=== PATIENT | male | born 1990 | race African-American/Black ===

== ENCOUNTER 2020-07-02 20:51 | Emergency (ER) | payer BC, SELFPAY ==
--- NOTE | ~2020-07-02 | XR_ITS ---
EXAMINATION: XR chest 1V portable DATE: 07/02/2020 23:20 INDICATION: Shortness of breath. Asthma. TECHNIQUE: A single frontal view of the chest was obtained. COMPARISON: None. FINDINGS: The patient is rotated to his left. No pneumonia, pleural effusion, or pneumothorax. The he art size is normal. IMPRESSION: 1. No acute cardiopulmonary disease. Reviewed, dictated and finalized at location A.
[2020-07-02 21:15] VITALS: BP 163/118; PULSE 90; RESP 22; TEMP 36.2; O2SAT 100
[2020-07-02 22:06] VITALS: PULSE 80; RESP 18; O2SAT 97
[2020-07-02 22:40] VITALS: PULSE 78; RESP 12
[2020-07-02] MEDS: ALBUTEROL SULFATE NEB 2.5 MG/0.5 ML INH INHALATION (22:51)
[2020-07-02] MEDS: IPRATROPIUM BR 0.02% INH SOLN 0.5 MG/2.5 ML VIAL INHALATION (22:51)
[2020-07-02 22:58] VITALS: PULSE 84; RESP 14
--- NOTE | 2020-07-02 23:10 | PCRCNOTE ---
AT 22:50 EXPLAINED THE IMPORTANCE OF THE ABG TO PT HE REFUSED AT THIS TIME MD IS AWARE.
--- NOTE | 2020-07-02 23:11 | PC.NURSE ---
pt refused blood draw
--- NOTE | 2020-07-02 23:34 | ED.ASTHMA ---
HPI - Asthma General Chief Complaint: Asthma Stated Complaint: asthma Time Seen by Provider: 07/02/20 23:00 Source: patient and RN notes reviewed Mode of arrival: ambulatory Limitations: no limitations History of Present Illness HPI Narrative: Patient is 29 years old -[place] male presents with wheezing and trouble breathing on exertion. Started in the last few days. History of asthma with the need of inhaler only every year in the spring and falls. Patient does not have inhaler at home at this time. Patient denies any fever, chills, nausea, vomiting, chest pain or back pain. Patient drove himself to the emergency room. Review of Systems Review of Systems: Narrative: CONSTITUTIONAL: Denies fever, chills, or sweats. EYES: Denies visual changes, redness, or discharge. ENT: Denies rhinorrhea, congestion, sore throat, or otalgia. CARDIOVASCULAR: Denies chest pain, palpitations, or edema. RESPIRATORY: Denies cough or dyspnea. GASTROINTESTINAL: Denies abdominal pain, nausea, vomiting, or diarrhea. GENITOURINARY: Denies dysuria or hematuria. SKIN: Denies rash or itching. MUSCULOSKELETAL: Denies back pain, joint pain, or myalgia. NEUROLOGIC: Denies headache, numbness, or weakness. PSYCHIATRIC: Denies anxiety or depression. PMFSH Social History Social History Gender identity (if verbalized by the patient): Male Exam Narrative: Exam Narrative: General appearance: Well-developed, well-nourished Skin: Normal color Head: Normocephalic, nontraumatic Eyes: Clear conjunctiva ENT: Oropharynx normal, ears normal, nose normal Neck: Supple, nontender Chest and respiratory: Airway patent, no respiratory distress, no accessory muscle use, few scattered wheezing Heart: Regular rate/rhythm Vascular: Normal peripheral pulses, normal capillary refill. 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 Differential Diagnosis Differential diagnosis: Likely Acute exacerbation and Acute asthmatic bronchitis Imaging Data Radiologist's impression: Impressions Chest X-Ray 07/02/20 23:20 IMPRESSION: 1. No acute cardiopulmonary disease. Critical Care Time Critical Care Time Critical Care Time: No Discharge Plan Discharge Clinical Impression: Asthma with acute exacerbation Qualifiers: Asthma severity: mild Asthma persistence: unspecified Qualified Code(s): J45.901 - Unspecified asthma with (acute) exacerbation Patient Disposition: Home, Self-Care Condition: Improved Instructions: Asthma (ED) Additional Instructions: Return if symptoms are worsening , call your family physician for appointment, take Tylenol as as needed for aches and pain, continue home medications. Prescriptions: New albuterol sulfate 90 mcg/actuation HFA aerosol inhaler 2 puff inhalation QID PRN (Reason: shortness of breath or wheezing) Qty: 8.5 RF: 0 fluticasone propionate [Flonase Allergy Relief] 50 mcg/actuation spray,suspension 2 spr
[2020-07-02 23:41] VITALS: BP 159/103; PULSE 67; RESP 16; O2SAT 97
== END 2020-07-02 23:49 | disposition home or self-care (01) ==
PROVIDERS: Emergency Provider Emergency Medicine
DX: J45.901 Unspecified asthma with (acute) exacerbation (principal)
CPT/HCPCS: 71045; 94640; 99283

== ENCOUNTER 2021-07-18 07:00 | Emergency (ER) | payer BC, SELFPAY ==
--- NOTE | ~2021-07-18 | XR_ITS ---
EXAMINATION: XR chest 1V portable DATE: 07/18/2021 07:41 INDICATION: Asthma exacerbation TECHNIQUE: frontal view of the chest was obtained. COMPARISON: Chest radiograph dated 07/29/2020 FINDINGS: The lungs are clear with no focal airspace opacities, pulmonary edema, pleural effusion or pneumothor ax. The cardiomediastinal silhouette is normal. Visualized bones and soft tissues are unremarkable. IMPRESSION: 1. No evident acute cardiopulmonary disease. Reviewed, dictated and finalized at location A.
[2021-07-18 07:07] VITALS: BP 160/120; PULSE 102; RESP 26; TEMP 36.5; O2SAT 98
[2021-07-18 07:15] VITALS: O2SAT 94
--- NOTE | 2021-07-18 07:16 | ED.ASTHMA ---
HPI - Asthma General Chief Complaint: Asthma Stated Complaint: asthma Time Seen by Provider: 07/18/21 07:15 Source: patient Mode of arrival: ambulatory Limitations: no limitations History of Present Illness HPI Narrative: Patient is 30 years old -[place] male presents with trouble breathing prior to arrival to the emergency room, patient is running out of his albuterol inhaler. He denies any fever, chills, nausea, vomiting. History of asthma flare every year at this time of the year Related Data Allergies Allergy/AdvReac Type Severity Reaction Status Date / Time Unable to Assess Allergy Verified 07/18/21 07:29 Review of Systems Review of Systems: All systems reviewed & are unremarkable except as noted in HPI and below PMFSH Social History Social History Gender identity (if verbalized by the patient): Male Exam Narrative: General appearance: Well-developed, well-nourished Skin: Normal color Head: Normocephalic, nontraumatic Eyes: Clear conjunctiva ENT: Oropharynx normal, ears normal, nose normal Neck: Supple, nontender Chest and respiratory: Airway patent, no respiratory distress, accessory muscle use Heart: Tachycardia Abdomen: Soft, nontender, no organomegaly, quiet bowel sounds Vascular: Normal peripheral pulses, normal capillary refill. 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 Patient is able to talk without interruption, walk in the emergency room without any restriction. Vital Signs Vital signs: Vital Signs Temperature 36.5 C 07/18/21 07:07 Pulse Rate 102 H 07/18/21 07:07 Respiratory Rate 26 H 07/18/21 07:07 Blood Pressure 160/120 H 07/18/21 07:07 Pulse Oximetry 98 07/18/21 07:07 Temperature 36.5 C 07/18/21 07:07 Pulse Rate 85 07/18/21 08:29 Respiratory Rate 18 07/18/21 08:29 Blood Pressure 160/120 H 07/18/21 07:07 Pulse Oximetry 98 07/18/21 07:07 MDM - Asthma Differential Diagnosis Differential diagnosis: Likely Acute exacerbation ABG Data ABG results: 07/18/21 07:39 Puncture Site Left radial ABG pH 7.395 ABG pCO2 40.0 ABG pO2 206.3 H ABG PO2/FiO2 Ratio 4.13 ABG HCO3 23.9 ABG O2 Saturation 99.4 ABG O2 Content 24.9 H ABG Base Excess -0.8 A-a Gradient 105.2 Oxyhemoglobin 98.5 Total Hemoglobin 17.7 O2 Delivery Device Simple mask O2 Liters/Min 8.0 FiO2 50 Imaging Data Radiologist's impression: Impressions Chest X-Ray 07/18/21 07:44 IMPRESSION: 1. No evident acute cardiopulmonary disease. Critical Care Time Critical Care Time Critical Care Time: Yes Total Critical Care Time: 30 Discharge Plan Discharge Clinical Impression: Asthma with acute exacerbation Qualifiers: Asthma severity: unspecified severity Asthma persistence: unspecified Qualified Code(s): J45.901 - Unspecified asthma with (acute) exacerbation Patient Disposition: Home, Self-Care Condition: Improved Instructions: Antibiotic Form, Bronchospasm (ED) Additional Instructions: Return if symptoms are worsening , call your family physician for appointment, take Tylenol as as needed for aches and pain, continue home medications. Prescriptions: New albuterol sulfate 90 mcg/actuation HFA aerosol inhaler 2 puff inhalation QID PRN (Reason: shortness of breath or wheezing) Qty: 8.5 RF: 0 fluticasone propion-salmeterol [Advair Diskus] 250-50 mcg/dose blister with device 1 i
[2021-07-18] MEDS: methylPREDNISolone SOD SUCC 125 MG VIAL IV PUSH (07:29)
[2021-07-18 07:30] VITALS: PULSE 89; RESP 27
[2021-07-18] MEDS: IPRATROPIUM BR 0.02% INH SOLN 0.5 MG/2.5 ML VIAL INHALATION (07:30)
[2021-07-18] MEDS: ALBUTEROL SULFATE NEB 2.5 MG/3 ML INH 5 MG INHALATION ×3 (07:30→08:25)
[2021-07-18 07:48] LABS: Alveolar/Arterial O2 Gradient 105.2 mmHg; Base Excess ABG -0.8 mEq/l (+/-2.0); Fractional Inspired Oxygen 50 %; HCO3 ABG 23.9 mEq/l (22.0-26.0); Oxygen Content ABG 24.9 %vol (16.0-22.0); Oxygen Saturation ABG 99.4 % (95.0-100.0); Oxyhemoglobin 98.5 % THb (90.0-100.0); PO2 ABG 206.3 mmHg (80.0-100.0); PO2 FiO2 Ratio Arterial Blood 4.13 %; Total Hemoglobin 17.7 g/dL (12.0-18.0); pH ABG 7.395 (7.350-7.450)
[2021-07-18 07:49] LABS: Device SIMPLE MASK; Modified Allen's Test Pass; Site Drawn LEFT RADIAL
[2021-07-18 08:29] VITALS: PULSE 85; RESP 18
[2021-07-18 09:45] VITALS: BP 143/95; PULSE 99; RESP 16; O2SAT 95
== END 2021-07-18 09:53 | disposition home or self-care (01) ==
PROVIDERS: Emergency Provider Emergency Medicine
DX: J45.901 Unspecified asthma with (acute) exacerbation (principal)
CPT/HCPCS: 36600; 71045; 82805; 94640; 96374; 99284; J2930